=== PATIENT | female | born 1945 | race Caucasian/White ===

== ENCOUNTER 2023-07-19 03:16 | Emergency (ER) | payer MEDICARE, OTHER ==
[2023-07-19] MEDS ORDERED: Acetaminophen 500 MG TAB ONE (04:04)
== END 2023-07-19 05:08 | disposition home or self-care (01) ==
LOC: MADERS 03:16
DX: S70.01XA Contusion of right hip, initial encounter (principal); J11.1 Influenza due to unidentified influenza virus with other respiratory manifestations; R53.1 Weakness; E11.9 Type 2 diabetes mellitus without complications; I10 Essential (primary) hypertension; E03.9 Hypothyroidism, unspecified; Z79.899 Other long term (current) drug therapy; Z79.82 Long term (current) use of aspirin; W22.8XXA Striking against or struck by other objects, initial encounter